=== PATIENT | female | born 1955 | race Caucasian/White ===

== ENCOUNTER → 2017-09-18 06:41 | Outpatient (CLI) | payer MEDICARE, MEDICAID, SELFPAY ==
[2017-09-18 07:22] LABS: Hematocrit 43.3 % (37-47); Hemoglobin 14.5 g/dl (12.0-15.0); Mean Corp Hgb Conc 33.5 g/gl (32-36); Mean Corpuscular Hgb 31.5 pg (27.0-32.0); Mean Corpuscular Volume 94.1 fL (81-99); Platelet Count 225 K/mm3 (150-450); RBC Distribution Width CV 12.6 % (11.6-14.6); RBC Distribution Width SD 43.1 fl (35.1-43.9); White Blood Count 4.8 K/mm3 (4.4-11.0)
[2017-09-18 07:31] LABS: Scan Indicated on CBC? Y/N NO
[2017-09-18 08:06] LABS: AST(SGOT) 19 U/L (15-37); Alanine Aminotransfer ALT/SGPT 25 U/L (13-56); Albumin, Serum 3.6 g/dL (3.2-5.0); Alkaline Phosphatase 47 U/L (45-117); Anion Gap 7 (5-15); BUN 12 mg/dL (7-18); Chloride 107 mmol/L (98-107); Cholesterol 186 mg/dL (200); EST Glomerular Filtration Rate 108 mL/min (>60); Est Glom Filt Rate - Afr Amer 131 mL/min (>60); Ferritin 289 ng/mL (8-252); Globulin 3.5 g/dL (2.2-4.2); Glucose 82 mg/dL (74-106); High Density Lipoprotein 42 mg/dL; Iron 121 ug/dL (50-170); Magnesium 1.8 mg/dL (1.6-2.6); Protein, Total 7.1 g/dL (6.4-8.2); Sodium Level 143 mmol/L (136-145); Triglycerides 200 mg/dL; Very Low Density Lipoprotein 40 mg/dL (5-40)
[2017-09-19 12:18] LABS: Vitamin B12 588 pg/mL (211-911); Vitamin D,25 Hydroxy 54.4 ng/mL (29.95-100.01)
[2017-10-02 11:04] LABS: Vitamin B1, Thiamine 133.6 nmol/L (66.5-200.0); Zinc, Plasma or Serum 84 ug/dL (56-134)
== END ==
PROVIDERS: Family Provider Nurse Practitioner Family; PCP Nurse Practitioner Family; Visit Provider Registered Nurse Nephrology
DX: K90.9 Intestinal malabsorption, unspecified (principal); E66.09 Other obesity due to excess calories; G47.30 Sleep apnea, unspecified; M19.90 Unspecified osteoarthritis, unspecified site
CPT/HCPCS: 36415; 80053; 80061; 82306; 82607; 82728; 82746; 83540; 83735; 84425; 84630; 85027

== ENCOUNTER → 2018-02-02 13:26 | Outpatient (CLI) | payer MEDICARE, SELFPAY ==
--- NOTE | 2018-02-02 13:29 | RAD_ITS ---
STUDY: X-RAY - RIGHT KNEE REASON FOR EXAM: Female, 62 years old. Right knee pain TECHNIQUE: 4 view(s) of the knee. Weightbearing views COMPARISON: None. FINDINGS: Normal visualized distal femur. Normal visualized proximal tibia and fibula. Normal proximal tibiofibular articulation. 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 There is moderate degenerative arthrosis of the lateral femorotibial compartment with moderate joint space narrowing. There is moderate degenerative arthrosis of the patellofemoral articulation. There is no demonstrated joint effusion. No significant joint space height loss. The soft tissue structures are unremarkable. RAD/Knee 4 or More Views IMPRESSION: Moderate degenerative changes without acute findings Electronically Signed: Sarabjit Meyers DO at 12:37 EDT Tel , Service support ,
== END ==
PROVIDERS: Family Provider Nurse Practitioner Family; PCP Nurse Practitioner Family; Referring Provider Physician Assistant; Visit Provider Physician Assistant
DX: M25.561 Pain in right knee (principal)
CPT/HCPCS: 73564